=== PATIENT | female | born 1980 | race Caucasian/White ===

== ENCOUNTER 2018-01-17 10:15 | Outpatient (CLI) | payer MEDICAID | END 2018-01-17 13:30 | disposition home or self-care (01) | LOC: OBT 10:15 → L-D 10:16 → OBT 13:30 | DX: O62.9 Abnormality of forces of labor, unspecified (principal); O09.523 Supervision of elderly multigravida, third trimester; Z3A.39 39 weeks gestation of pregnancy | CPT/HCPCS: 76818 ==

== ENCOUNTER 2018-01-24 07:52 | Inpatient (IN) | payer MEDICAID ==
[2018-01-24] MEDS: LACTATED RINGER'S 1,000 ML IV ×2 (09:17→13:13)
[2018-01-24] MEDS ORDERED: METHYLERGONOVINE 0.2 MG INJ IM ×2 (09:30→17:00)
[2018-01-24] MEDS ORDERED: MISOPROSTOL 200 MCG TAB PR ×2 (09:30→17:00)
[2018-01-24] MEDS ORDERED: CARBOPROST 250 MCG INJ IM ×2 (09:30→17:00)
[2018-01-24] MEDS ORDERED: BUTORPHANOL 2 MG INJ IV (09:30)
[2018-01-24] MEDS ORDERED: LIDOCAINE 1% (MPF) 30 ML INJ INJ (09:30)
[2018-01-24] MEDS ORDERED: OXYTOCIN 30 UNITS/LR 500 ML IV ×4 (09:30→17:00)
[2018-01-24 09:45] LABS: ADD MAN DIFF? NO; BASOPHILS % 0.4 % (0.0-2.0); EOSINOPHILS # 0.1 10^3/ul (0.0-0.5); EOSINOPHILS % 0.9 % (0.0-7.0); HEMATOCRIT 33.4 % (37.0-47.0); HEMOGLOBIN 10.8 g/dl (12.0-16.0); LYMPHOCYTES # 1.3 10^3/ul (0.8-2.9); LYMPHOCYTES % 23.3 % (15.0-51.0); MEAN CORPUSCULAR HEMOGLOBIN 29.1 pg (29.0-33.0); MEAN CORPUSCULAR HGB CONC 32.3 g/dl (32.0-37.0); MEAN PLATELET VOLUME 12.3 fl (7.4-10.4); MONOCYTE # 0.5 10^3/ul (0.3-0.9); MONOCYTES % 8.6 % (0.0-11.0); NEUTROPHIL # 3.6 10^3/ul (1.6-7.5); NEUTROPHILS % 66.1 % (39.0-77.0); PLATELET COUNT 187 10^3/UL (140-415); RED BLOOD COUNT 3.71 10^6/ul (4.20-5.40); RED CELL DISTRIBUTION WIDTH 14.8 % (11.5-14.5)
[2018-01-24 09:45] LABS: WHITE BLOOD COUNT 5.5 10^3/ul (4.8-10.8)
[2018-01-24 10:18] LABS: INR 0.92; PROTIME 12.4 Sec (11.9-14.9)
[2018-01-24 10:19] LABS: PARTIAL THROMBOPLASTIN TIME 27.5 Sec (25.0-35.0)
[2018-01-24] MEDS: OXYTOCIN 30 UNITS/LR 500 ML IV (10:56)
[2018-01-24] MEDS: BUTORPHANOL 2 MG INJ IV (12:45)
[2018-01-24] MEDS: IBUPROFEN 600 MG TAB PO ×3 (14:46→23:30)
[2018-01-24 14:57] LABS: RAPID PLASMA REAGIN NONREACTIVE (NR)
[2018-01-24] MEDS ORDERED: DEXTROSE 5%-LR 1,000 ML IV (16:54)
[2018-01-24] MEDS ORDERED: ACETAMINOPHEN 325 MG TAB PO (17:00)
[2018-01-24] MEDS ORDERED: ONDANSETRON 4 MG INJ IV (17:00)
[2018-01-24] MEDS ORDERED: DIPHENHYDRAMINE 50 MG INJ IV (17:00)
[2018-01-24] MEDS ORDERED: ZOLPIDEM 5 MG TAB PO (17:00)
[2018-01-24] MEDS ORDERED: DIBUCAINE 1% 30 GM OINT PR (17:00)
[2018-01-24] MEDS ORDERED: OXYCODONE/ASPIRIN (4.88/325) TAB PO (17:00)
[2018-01-24] MEDS: BENZOCAINE 20% 56 ML SPRAY TOP (18:17)
[2018-01-24] MEDS: WITCH HAZEL/GLYCERIN PAD PR (18:17)
[2018-01-24] MEDS: LANOLIN 7 GM TUBE TOP (18:18)
[2018-01-24] MEDS: LACTATED RINGER'S 1,000 ML IV* (19:43)
[2018-01-25] MEDS: IBUPROFEN 600 MG TAB PO ×4 (05:41→23:52)
[2018-01-25 07:33] LABS: ADD MAN DIFF? NO
[2018-01-25 07:34] LABS: WHITE BLOOD COUNT 10.5 10^3/ul (4.8-10.8)
[2018-01-25 07:34] LABS: BASOPHILS % 0.4 % (0.0-2.0); EOSINOPHILS # 0.1 10^3/ul (0.0-0.5); EOSINOPHILS % 0.7 % (0.0-7.0); HEMATOCRIT 33.6 % (37.0-47.0); HEMOGLOBIN 11.1 g/dl (12.0-16.0); LYMPHOCYTES # 2.3 10^3/ul (0.8-2.9); LYMPHOCYTES % 21.6 % (15.0-51.0); MEAN CORPUSCULAR HEMOGLOBIN 29.8 pg (29.0-33.0); MEAN CORPUSCULAR VOLUME 90.1 fl (82.0-101.0); MONOCYTE # 0.6 10^3/ul (0.3-0.9); MONOCYTES % 6.1 % (0.0-11.0); NEUTROPHIL # 7.4 10^3/ul (1.6-7.5); NEUTROPHILS % 70.6 % (39.0-77.0); PLATELET COUNT 184 10^3/UL (140-415); RED BLOOD COUNT 3.73 10^6/ul (4.20-5.40); RED CELL DISTRIBUTION WIDTH 14.8 % (11.5-14.5)
[2018-01-25] MEDS: SENNA/DOCUSATE NA (8.6MG/50MG) TAB PO (10:29)
[2018-01-26] MEDS: IBUPROFEN 600 MG TAB PO ×2 (06:13→12:05)
[2018-01-26] MEDS: MEASLES,MUMPS,RUBELLA VACCINE INJ SC* (09:30)
[2018-01-26] MEDS: DIPHTH/TET/ACEL PERTUSS (ADULT) 0.5 ML VIAL IM* (11:53)
== END 2018-01-26 13:50 | disposition home or self-care (01) | DRG 775 ==
LOC: OBT 07:52 → L-D 07:53 → OBT 08:40 → L-D 08:40 → PP1 16:14
PROVIDERS: Obstetrics & Gynecology
PROC: 10E0XZZ Delivery of Products of Conception, External Approach (ICD-10-PCS; principal; 2018-01-24)
PROC: 10907ZC Drainage of Amniotic Fluid, Therapeutic from Products of Conception, Via Natural or Artificial Opening (ICD-10-PCS; 2018-01-24)
PROC: 4A1HXCZ Monitoring of Products of Conception, Cardiac Rate, External Approach (ICD-10-PCS; 2018-01-24)
DX: O80 Encounter for full-term uncomplicated delivery (principal); Z3A.40 40 weeks gestation of pregnancy; Z37.0 Single live birth
CPT/HCPCS: 85025; 85610; 85730; 86592; 86900; 86901; 90715